=== PATIENT | female | born 1980 | race Caucasian/White ===

== ENCOUNTER → 2021-04-02 01:43 | Outpatient (CLI) | payer OTHER, SELFPAY ==
[2021-04-02 19:28] LABS: SARS-CoV-2 RNA PCR Negative
== END ==
PROVIDERS: Visit Provider Student in an Organized Health Care Education/Training Program
DX: Z01.812 Encounter for preprocedural laboratory examination (principal); Z20.822 Contact with and (suspected) exposure to COVID-19
CPT/HCPCS: C9803; U0003; U0005

== ENCOUNTER 2021-04-04 01:30 | Day surgery (SDC) | payer OTHER, SELFPAY ==
--- NOTE | 2021-04-04 07:08 | P.HP_ITS ---
H&P: HPI History of Present Illness Date/Time: 04/04/21 07:08 Chief Complaint: Abnormal uterine bleeding Narrative: 40 yo who presents for hysteroscopy D&C for abnormal uterine bleeding. Pt presented complaining of heavy frequent menses. Pt also reported several associated PMS symptoms. Pt declined hormonal contraception use for menstrual regulation due to roman catholic beliefs. Pt opted for surgical management. Review of Systems Cardiovascular: Cardiovascular: Denies chest pain, Denies leg edema, Denies palpitations, Denies dyspnea and Denies dyspnea on exertion Respiratory: Respiratory: Denies cough, Denies dyspnea and Denies dyspnea on exertion Gastrointestinal: Gastrointestinal: Denies abdominal pain, Denies constipation, Denies diarrhea, Denies nausea and Denies vomiting Genitourinary: Genitourinary: Denies hematuria, Denies urinary frequency, Denies dysuria, Denies pelvic pain, Denies urinary incontinence and Denies vaginal discharge Neurologic: Reports system reviewed and no additional complaints, except as documented Psychiatric: Psychiatric: Reports no additional psychiatric complaints Endocrine: Endocrine: Denies palpitations Exam Const: General: no acute distress Eyes: EOM: EOMs intact bilaterally Neck: Neck: supple Thyroid: thyroid normal Chest: Breast/axilla inspection: normal inspection of the breasts Breast/axilla palpation: normal palpation of the breasts, normal palpation of the axillae and no axillary lymphadenopathy Resp: Effort & Inspection: normal respiratory effort Auscultation: clear to auscultation bilaterally Cardio: Rate: regular rate Rhythm: regular rhythm GI: Inspection: non-distended GI Palp: Yes Soft to palpation, No Tenderness to palpation present (GI) and No Guarding due to palpation present (GI) Auscultation: normal bowel sounds : General: No bladder normal to palpation External Female Exam: normal external appearance Speculum Exam - Vagina: normal vaginal discharge and No vaginal bleeding Speculum Exam - Cervix: nontender Bimanual exam- vagina & uterus: No bladder normal to palpation and No Cervical tenderness present OB/external & speculum: No vaginal bleeding Skin: General skin exam: normal color and no rashes or lesions noted Neuro: Cognition (Neuro): normal cognition Speech: normal speech Extrem: General: normal to inspection and no edema Psych: Mental Status: mental status grossly normal Affect: normal affect Assessment and Plan Assessment and plan (1) Abnormal uterine bleeding (AUB): Code(s): N93.9 - Abnormal uterine and vaginal bleeding, unspecified Status: Acute Assessment and Plan: Pt presents c/o heavy and frequent menses pt declined hormonal OCP due to roman catholic concerns pelvic US showed axial uterus measuring 9x4x5 cm with a 12mm endometrial thickness TSH/T4, H/H, prolactin, FSH, estradiol all wnl will plan for hysteroscopy D&C.
--- NOTE | 2021-04-04 07:12 | WPDHPUPDATE1 ---
History and Physical Update Update Date/Time: 04/04/21 07:12 History and Physical has been reviewed, including an updated exam of the patient. There are NO changes in the patient's condition. Risks, benefits, and alternatives have been discussed and questions answered. Patient agrees to proceed with procedure.
[2021-04-04 08:13] VITALS: BMI 28.8
--- NOTE | 2021-04-04 08:50 | P.PNAN_ITS ---
Anes - Initial Pre Proc Eval Procedure: Operation Date: 04/04/21 12:00 Proposed Procedures p Hysteroscopy, Dilation and Curettage - Berny Zaays MD Date/Time: 04/04/21 08:50 Surgeon: Berny Zayas MD Pre Op Diagnosis: Abnomal uterine bleeding Patient Data Age: 40 Gender: F Height: 1.73 m Weight: 85.9 kg Allergies Allergy/AdvReac Type Severity Reaction Status Date / Time aspirin AdvReac Mild Shakiness Verified 04/04/21 11:00 ibuprofen AdvReac Mild Shakiness Verified 04/04/21 11:00 Home Medications Medication Instructions Recorded Confirmed Type activated charcoal 5,000 mg PO ONCE PRN 04/04/21 04/04/21 History ascorbic acid (vitamin C) [Vitamin 500 mg PO DAILY 04/04/21 04/04/21 History C] ferrous sulfate 325 mg PO BID 04/04/21 04/04/21 History meclizine 12.5 mg PO BID PRN 04/04/21 04/04/21 History omega-3 fatty acids-vitamin E 1 cap PO DAILY 04/04/21 04/04/21 History [Fish Oil] omeprazole 20 mg PO DAILY 04/04/21 04/04/21 History vitamin E 400 unit PO DAILY 04/04/21 04/04/21 History Patient hx anesthesia problems: none Family hx anesthesia problems: none [facility] Past Medical History Medical History (Updated 04/04/21 @ 08:51 by Parminder Hagen DO) GERD (gastroesophageal reflux disease) Social History Social History Smoking status: Never smoker Living arrangements: with family Spiritual care concerns: No Anes - Eval Final PreProcedure Day of Procedure 04/04/21 08:50 Patient weight: overweight Heart: regular rate and rhythm Lungs: clear to auscultation and normal air movement Airway: Mallampati scale class II Neurological: alert and oriented Last oral intake: >/= 8 hours ASA classification: II Emergent: no Anesthetic plan: proceed Anesthesia type and monitoring: general GIVS and standard monitoring Informed Consent: The patient's anesthetic plan and its attendant risks and benefits were discussed with the patient/family/POA. Questions were solicited and answers provided to the satisfaction of the patient/family/POA.
[2021-04-04 11:19] LABS: Hematocrit 43.1 % (37.0-47.0); Hemoglobin 14.7 g/dL (12.0-15.0)
[2021-04-04] MEDS: LACTATED RINGERS 1,000 ML 30 ML IV CONT (11:20)
[2021-04-04 11:27] VITALS: BP 145/82; PULSE 84; TEMP 36.9; O2SAT 100
--- NOTE | 2021-04-04 12:22 | W.PM.PROC2 ---
Procedure Note - Detailed Date of Procedure 04/04/21 Pre-op Diagnosis Abnomal uterine bleeding Post-op Diagnosis same Procedure Performed paracervical block hysteroscopy dilation & curettage Surgeon Berny Zayas MD Anesthesia general Indications abnormal uterine bleeding Findings normal appearing intrauterine cavity. Normal tubal ostia bilaterally Description of Procedure Angelia Clinton presents for hysteroscopy D&C for AUB. She was counseled as to the indications, risks, benefits, and alternatives to surgery, with the risks including bleeding, infection, damage to surrounding organs, VTE, and complications of anesthesia. Her verbal and written consent was obtained. PROCEDURE: The patient was taken to the OR and general anesthesia induced. She was prepped and draped in yellow fin stirrups with support of the back and bilateral lower extremities. I/O catheterization performed of the bladder. The above findings were noted. Infiltration with 1% lidocaine at the 3 and 9 o'clock cervical positions was performed. A single tooth tenaculum was placed on the anterior lip of the cervix. The uterus sounded to 9 cm. The cervix was dilated with sequential Abigail dilators. Hysteroscopy, using a normal saline medium, was performed and showed the above findings. Sharp uterine curettage was then performed and tissue placed on Telfa. The tenaculum was removed and hemostasis was observed. The patient tolerated the procedure well. Sponge, lap, and needle counts were correct. The patient was taken to the recovery room in stable condition. Estimated Blood Loss 50 Urine Output 10 Drains No Packing No Pathology yes (endometrial curettings ) Complications No immediate complications Condition stable Disposition PACU
[2021-04-04 12:26] VITALS: BP 100/56; PULSE 70; RESP 20; O2SAT 100
[2021-04-04 12:50] VITALS: BP 141/78; PULSE 75; RESP 18; O2SAT 100
[2021-04-04 13:20] VITALS: BP 137/82; PULSE 67; RESP 14
[2021-04-04] MEDS: ACETAMINOPHEN 500 MG TABLET 1000 MG PO (13:29)
[2021-04-04 13:50] VITALS: BP 141/80; PULSE 72; RESP 14
== END 2021-04-04 13:59 | disposition home or self-care (01) ==
PROVIDERS: Visit Provider Student in an Organized Health Care Education/Training Program
PROC: 0U5B8ZZ Destruction of Endometrium, Via Natural or Artificial Opening Endoscopic (ICD-10-PCS; CPT 58563; principal; 2021-04-04 12:00)
DX: N93.9 Abnormal uterine and vaginal bleeding, unspecified (principal); K21.9 Gastro-esophageal reflux disease without esophagitis
CPT/HCPCS: 58558; 36415; 85014; 85018; 88305; A9270; J1100; J2250; J2405; J2704; J3010; J7030; J7120